=== PATIENT | female | born 1960 | race Caucasian/White ===

== ENCOUNTER 2017-08-13 08:30 | Outpatient (CLI) | payer OTHER ==
--- NOTE | 2017-08-13 15:21 | Nuclear Medicine Report ---
EXAM: PARATHYROID SCAN WITH SESTAMIBI, PLANAR AND SPECT IMAGING EXAM DATE: 08/13/2017 09:09 AM. CLINICAL HISTORY: Hyperparathyroidism. COMPARISON: None. TECHNIQUE: Following the intravenous administration of 23.7 mCi Tc-99m sestamibi, planar images of t he neck and upper chest were acquired immediately, and at one and two hours post injection. Additiona lly, a SPECT image was acquired according to the protocol; images were reconstructed in the axial, co lokesh, and sagittal projections. FINDINGS: The multiple planar sestamibi images demonstrate expected physiologic uptake in the salivar y glands and thyroid gland. There is asymmetric heterogeneous uptake in the right thyroid lobe with s omewhat nodular focus at the upper pole. On the delayed images there is persistent focal uptake at th e lower pole of the right thyroid gland with expected washout of the remainder of the thyroid gland. The SPECT sestamibi images demonstrate asymmetric focal uptake in the region of the lower pole of the right thyroid lobe. No evidence of ectopic parathyroid adenoma. No significant abnormalities in the remainder of the study. IMPRESSION: 1. Scintigraphic findings are consistent with a parathyroid adenoma at the lower pole of the right th yroid lobe. 2. Otherwise asymmetric thyroid gland uptake with somewhat nodular focus at the upper pole of the rig ht thyroid lobe. 3. Ultrasound correlation suggested. [facility] Referring Provider Line: [phone] SITE ID: [id number]
== END 2017-08-13 08:31 | disposition home or self-care (01) ==
LOC: DI 08:30
PROVIDERS: ATTEND Surgery
DX: E21.3 Hyperparathyroidism, unspecified (principal)
CPT/HCPCS: 78070; A9500

== ENCOUNTER 2017-09-25 05:58 | Day surgery (SDC) | payer OTHER ==
[2017-09-25 06:54] VITALS: BP 153/102
[2017-09-25] MEDS ORDERED: ceFAZolin 2 GM/50 ML 2 GM/50 ML BAG IV ONE (06:55)
[2017-09-25] MEDS ORDERED: LACTATED RINGERS 1,000 ML IV ONE ×2 (07:15→09:19)
[2017-09-25 08:16] LABS: ALBUMIN 3.3 g/dL (3.2-5.5); ALBUMIN/GLOBULIN RATIO 0.9 (1.0-2.2); BILIRUBIN,TOTAL 0.7 mg/dL (0.2-1.0); CALCIUM 9.7 mg/dL (8.5-10.3); CREATININE 0.8 mg/dL (0.4-1.0); TOTAL PROTEIN 6.9 g/dL (6.7-8.2)
[2017-09-25] MEDS ORDERED: SUCCINYLCHOLINE 200 MG/10 ML VIAL IVP ONE (10:11)
[2017-09-25] MEDS ORDERED: KETOROLAC 30 MG/ML VIAL IVP ONE (10:11)
[2017-09-25] MEDS ORDERED: fentaNYL 250 MCG/5 ML VIAL IVP ONE (10:11)
[2017-09-25] MEDS ORDERED: MIDAZOLAM 2 MG/2 ML VIAL IVP ONE (10:11)
[2017-09-25] MEDS ORDERED: PROPOFOL 200 MG/20 ML VIAL IVP ONE (10:11)
[2017-09-25] MEDS ORDERED: DEXAMETHASONE 4 MG/ML VIAL IVP ONE (10:11)
[2017-09-25] MEDS ORDERED: ONDANSETRON 4 MG/2 ML VIAL IVP ONE (10:11)
--- NOTE | 2017-09-25 10:19 | OPERATIVE REPORT ---
Operative Report - General Procedure Date: 09/25/17 Planned Procedure: RIGHT lower parathyroidectomy Pre-Op Diagnosis: Hyperparathyroidism (adenoma suspected) Procedure Performed: RIGHT lower parathyroidectomy Post Op Diagnosis: Hyperparathyroidism (adenoma confirmed - pathologically with weight=1.5 gm) - Procedure Note Primary Surgeon: Anam Zhou MD Anesthesia Provider: Ebony Leslie CRNA Anesthesia Technique: General ET tube Pathology: Frozen section confirmed RIGHT lower parathyroid adenoma weight =1.5 gm IV Fluids (mL): 1,200 Estimated Blood Loss (mL): 15 Urine Output (mL): 25 Drain/Tube Type: Jabari drain (10 Bulgarian) Complications: None. - Other Other Information/Narrative: OPERATIVE DESCRIPTION/REPORT: After verbal and written informed consent was obtained detailing the risks of infection, bleeding requiring transfusion with its risks, nerve injury, and , and after I met with the patient confirming the surgery and the site of the surgery, the patient was brought to the operative suite and placed supine on the operating table. Great care was taken to avoid pressure points to prevent pressure necrosis or nerve injury. Monitoring devices were applied along with TEDs and pneumatic compressive stockings (to prevent DVT). The patient received preoperative antibiotics for surgical prophylaxis. Ebony Leslie CRNA sedated and anethetized the patient for the entire procedure. The patient was prepped and draped in the usual sterile manner. With the patient draped my initials were clearly visible. A "time in" then confirmed that the paitient was identified with 3 identifiers (name, date and medical record number), the history and physical was in the chart, the signed consent confirming the procedure was in the chart, the patient was in the correct position, the aforementioned prophylactic measures were in place or given, we had the correct personnel and equipment to complete the procedure and that anesthesia, surgery and nursing were given an opportunity to express any concerns. With the agreement of everyone in the room, we proceeded with the operation. A standard curvilinear neck incision was made and dissection was carried down past the platysma muscle. Superior and inferior flaps of skin were then raised using gentle traction and Bovie electrocautery. The midline was incised with Bovie electrocautery in order to retract the strap muscles laterally without having to cut them. Dissection along the posterior aspect of the sternothyroid muscles and the anterior portion of the thyroid allowed the RIGHT anterior thyroid to be freed. The thyroid was normal except for a large thyroid cyst in the mid-upper pole. No lymphadenopathy was noted. The middle thyroidal vein was controlled proximally and distally and transected to aid in dissection and mobilization of the thyroid. After the inferior portion of the thyroid had been mobilized extent initial extensive dissection did not find the parathyroid adenoma and deeper evaluation finally found the parathyroid adenoma which is quite large between the carotid artery and the spine posterior to the trachea. The blood supply to this was doubly clipped with small hemoclips and the specimen was delivered from the operative field. This was sent to pathology for frozen section and evaluation. The pathologist called to confirm that this was an adenoma and confirmed the size. Once I obtain the phone call, hemostasis obtained using Bovie electrocautery but due to concerns I had for using a 10 Bulgarian Jabari drain was placed through a stab incision inferiorly and directed into the operative site. This was secured to the skin using a 3-0 nylon suture which was Rodrigo sandaled about the drain. The midline was re-approximated by sewing the fascia overlying the strap muscles with a running 3-0 Vicryl suture. The platysma was approximated using interrupted 3-0 Vicryl sutures. The skin was approximated using interrupted mattress 5-0 nylon sutures which will be removed tomorrow morning. At this point a time out was performed that confirmed that all the counts were correct, the procedure that was performed, the blood loss, the urine output, the IV fluids administered, and the patients condition. The skin sutures will be removed tomorrow morning. A dressing was then applied. All surgical counts were reported as correct. Having tolerated the procedure well, the patient was subsequently extubated and taken to recovery room in good and stable condition. The vocal cords were noted to be midline and moving at the end of the case with the patient phonating clearly and without difficulty.
[2017-09-25] MEDS ORDERED: HYDROmorphone 0.5 MG/0.5 ML SYRINGE IVP PRN ×2 (11:32→12:15)
[2017-09-25] MEDS ORDERED: ONDANSETRON 4 MG/2 ML VIAL IVP PRN ×2 (11:32→12:13)
[2017-09-25] MEDS: oxyCOD/ACETAMIN 5 MG/325 MG TABLET PO PRN ×3 (12:03→20:36)
[2017-09-25] MEDS ORDERED: CHOLECALCIFEROL 1,000 UNIT TABLET PO SCH (13:00)
[2017-09-25] MEDS: CALCIUM CARB (OYSTER SHELL) 500 MG TABLET PO SCH ×3 (15:19→20:35)
[2017-09-25] MEDS: CHOLECALCIFEROL 400 UNIT TABLET PO SCH ×3 (15:19→20:36)
[2017-09-25] MEDS ORDERED: SODIUM CHLORIDE FLUSH 0.9% 10 ML SYRINGE ONE ×2 (16:17→16:40)
[2017-09-26 01:02] LABS: CALCIUM 9.1 mg/dL (8.5-10.3); PHOSPHORUS 2.3 mg/dL (2.5-4.6)
[2017-09-26] MEDS ORDERED: SODIUM CHLORIDE FLUSH 0.9% 10 ML SYRINGE ONE (01:20)
[2017-09-26 06:20] LABS: PHOSPHORUS 2.9 mg/dL (2.5-4.6)
[2017-09-26] MEDS: CHOLECALCIFEROL 400 UNIT TABLET PO SCH (08:19)
[2017-09-26] MEDS: CALCIUM CARB (OYSTER SHELL) 500 MG TABLET PO SCH (08:19)
--- NOTE | 2017-09-26 08:57 | Discharge Plan ---
Discharge Plan Disposition: Home, Self Care Prescriptions: oxyCODONE/ACET 5/325 [Percocet 5 mg/325 mg] 1 tab PO Q4HR PRN #20 tablet PRN Reason: Pain Calcium Carbonate/Vitamin D3 [Calcium 500 mg-Vit D3 600 Unit] 1 each PO QID # 120 tablet Diet: Regular Activity Restrictions: No Restrictions Shower Restrictions: No Driving Restrictions: Yes (Until neck motion normal.) No Smoking: If you smoke, Please STOP! Call for help. Follow-up with: TALHA RIGGS [Primary Care Provider] - Anam Zhou MD [Provider Admit Priv/Credential] -
== END 2017-09-26 09:11 | disposition home or self-care (01) ==
LOC: SDS 05:58 → MS2 10:10 → SDS 09-26 09:11
PROVIDERS: ATTEND Surgery
PROC: 0GBN0ZZ Excision of Right Inferior Parathyroid Gland, Open Approach (ICD-10-PCS; principal; 2017-09-25 07:30)
DX: D35.1 Benign neoplasm of parathyroid gland (principal); E21.0 Primary hyperparathyroidism; I10 Essential (primary) hypertension
CPT/HCPCS: 36415; 60500; 80053; 82310; 84100; A9270; J0330; J0690; J1170; J3010; J7120

== ENCOUNTER 2017-09-27 12:27 | Outpatient (CLI) | payer OTHER ==
[2017-09-27 19:09] LABS: PHOSPHORUS 3.6 mg/dL (2.5-4.6)
== END 2017-09-27 12:28 | disposition home or self-care (01) ==
LOC: LAB.WCP 12:27
PROVIDERS: ATTEND Surgery
DX: E89.2 Postprocedural hypoparathyroidism (principal)
CPT/HCPCS: 36415; 81599; 82310; 84100

== ENCOUNTER 2020-06-10 10:07 | Outpatient (CLI) | payer OTHER ==
--- NOTE | 2020-06-11 10:49 | Mammography Report ---
BILATERAL DIGITAL SCREENING MAMMOGRAM 3D/2D: 06/10/2020 CLINICAL: Routine screening. Comparison is made to exams dated: 11/08/2015 mammogram and 11/04/2014 mammogram - [facility]. There are scattered fibroglandular elements in both breasts. No significant masses, calcifications, or other findings are seen in either breast. There has been no significant interval change. IMPRESSION: NEGATIVE There is no mammographic evidence of malignancy. A 1 year screening mammogram is recommended. This exam was interpreted at Station ID: [id number]. NOTE: For mammograms, a report in lay terms will be sent to the patient. Approximately 15% of breast malignancies will not be visualized mammographically. In the management of a palpable breast mass, a negative mammogram must not discourage biopsy of a clinically suspicious lesion. Electronically Signed By: Yann Mccormick M.D., jr/adrian:06/10/2020 12:42:55 ACR BI-RADS Category 1: Negative 3341F PARENCHYMAL PATTERN: (A) - The breast(s) demonstrate(s) scattered fibroglandular densities. BI-RADS CATEGORY: (1) - 1 RECOMMENDATION: (ANNUAL) - Recommend routine annual screening mammography. [id number] 1 year screening LATERALITY: (B)
== END 2020-06-10 10:08 | disposition home or self-care (01) ==
LOC: DI.N 10:07
DX: Z12.31 Encounter for screening mammogram for malignant neoplasm of breast (principal)

== ENCOUNTER 2021-12-27 10:24 | Emergency (ER) | payer OTHER ==
[2021-12-27 10:58] LABS: BASOPHILS # (AUTO) 0.1 10^3/uL (0.0-0.1); BASOPHILS % (AUTO) 0.8 %; EOSINOPHILS % (AUTO) 0.3 %; HCT - HEMATOCRIT 51.1 % (37.0-47.0); HGB - HEMOGLOBIN 16.5 g/dL (12.0-16.0); LYMPHOCYTES # (AUTO) 3.1 10^3/uL (1.5-3.5); MEAN CORPUSCULAR HEMOGLOBIN 28.2 pg (27.0-31.0); MEAN CORPUSCULAR HGB CONC 32.3 g/dL (32.0-36.0); MEAN CORPUSCULAR VOLUME 87.4 fL (81.0-99.0); MEAN PLATELET VOLUME 11.9 fL (7.9-10.8); MONOCYTES # (AUTO) 0.8 10^3/uL (0.0-1.0); MONOCYTES % (AUTO) 8.2 %; NEUTROPHILS # (AUTO) 6.2 10^3/uL (1.5-6.6); NEUTROPHILS % (AUTO) 60.4 %; PLT - PLATELET COUNT 255 10^3/uL (130-450); RED BLOOD COUNT 5.85 10^6/uL (4.20-5.40); RED CELL DISTRIBUTION WIDTH 13.8 % (12.0-15.0); WHITE BLOOD COUNT 10.3 x10^3/uL (4.8-10.8)
[2021-12-27 11:09] LABS: ALBUMIN 4.4 g/dL (3.2-5.5); BILIRUBIN,TOTAL 1.2 mg/dL (0.2-1.0); CALCIUM 10.2 mg/dL (8.5-10.3); CREATININE 1.4 mg/dL (0.4-1.0); TOTAL PROTEIN 8.7 g/dL (6.7-8.2)
[2021-12-27 11:28] LABS: CLARITY,URINE SL. CLOUDY (CLEAR); GLUCOSE, URINE (UA) NEGATIVE (NEGATIVE); KETONES,URINE (UA) 40 mg/dL (NEGATIVE); LEUKOCYTE ESTERASE, URINE TRACE (NEGATIVE); NITRITE,URINE NEGATIVE (NEGATIVE); OCCULT BLOOD,URINE NEGATIVE (NEGATIVE); PROTEIN,URINE 100 mg/dL (NEGATIVE); UROBILINOGEN,URINE 1 (NORMAL) E.U./dL (NORMAL)
[2021-12-27 11:33] LABS: BILIRUBIN,URINE NEGATIVE (NEGATIVE); ICTOTEST,URINE NEGATIVE
[2021-12-27 11:37] LABS: BACTERIA,URINE Moderate /HPF (None Seen); CASTS, URINE 0-2 Hyaline Casts /LPF; CRYSTALS,URINE 3-5 Calcium Oxalate /LPF; RBC,URINE 0-5 /HPF (0-5); SQUAMOUS EPITHELIAL CELL,UR FEW Squamous (<= Few)
--- NOTE | 2021-12-27 14:36 | ED Physician Documentation ---
PD HPI ABD PAIN - Stated complaint Stated Complaint: ABD PAIN - Chief complaint Chief Complaint: Abd Pain - History obtained from History obtained from: Patient - History of Present Illness Timing - onset: How many weeks ago (several) Timing - duration: Weeks Timing - details: Gradual onset, Still present, Waxing and waning Quality: Cramping, Aching, Pain Location: RUQ, Epigastric, Periumbilical Improved by: No: Eating, BM Worsened by: Eating Associated symptoms: Nausea, Diarrhea (soft stool at times.), Loss of appetite. No: Fever, Vomiting, Melena, Hematochezia, Dysuria Similar symptoms before: Has not had sx before Recently seen: Not recently seen Review of Systems Constitutional: denies: Fever, Chills Nose: denies: Rhinorrhea / runny nose, Congestion Throat: denies: Sore throat Respiratory: denies: Cough GI: reports: Abdominal Pain, Nausea, Diarrhea. denies: Vomiting, Constipation : denies: Dysuria, Frequency Neurologic: reports: Generalized weakness. 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 HEENT: Other - Present Medications Home Medications: Ambulatory Orders Medication Instructions Recorded Confirmed Cholecalciferol [Vitamin D3] 5,000 unit PO DAILY 09/24/17 09/24/17 Multivitamin [Multiple Vitamins] 1 each PO DAILY 09/24/17 09/24/17 Calcium Carbonate/Vitamin D3 1 each PO QID #120 tablet 09/26/17 [Calcium 500 mg-Vit D3 600 Unit] oxyCODONE/ACET 5/325 [Percocet 5 1 tab PO Q4HR PRN #20 tablet 09/26/17 mg/325 mg] Famotidine [Pepcid] 20 mg PO DAILY #20 tablet 12/27/21 HYDROcod/ACETAM 5/325 [[place] 5/325] 1 ea PO Q6H PRN #18 tablet 12/27/21 Ondansetron Odt [Zofran] 4 mg TL Q6H PRN #20 tablet 12/27/21 - Allergies Allergies/Adverse Reactions: Allergies Allergy/AdvReac Type Severity Reaction Status Date / Time No Known Drug Allergies Allergy Verified 09/24/17 12:33 PD ED PE NORMAL - Vitals Vital signs reviewed: Yes - General General: Alert and oriented X 3, Well developed/nourished - HEENT HEENT: Pharynx benign - Neck Neck: Supple, no meningeal sign, No adenopathy - Cardiac Cardiac: RRR, No murmur - Respiratory Respiratory: Clear bilaterally - Abdomen Abdomen: Soft, Non distended, No organomegaly, Other (decreased bowel sounds. Tender upper abd mid to right and also mid abd. Mild guarding. no rebound nor percussion tenderness. ) - Back Back: No CVA TTP - Derm Derm: Normal color, Warm and dry - Neuro Neuro: Alert and oriented X 3, No motor deficit, Normal speech Results - Vitals Vitals: Oxygen O2 Source Room air - Labs Labs: Microbiology 12/27/21 10:45 Urine Culture - Final Urine,Random 10-50,000 COLONIES/ML Polymicrobial growth including potential pathogens. This is suggestive of skin or other contamination. Laboratory Tests 12/27/21 12/27/21 12/27/21 10:37 10:45 10:50 WBC 10.3 RBC 5.85 H Hgb 16.5 H Hct 51.1 H MCV 87.4 MCH 28.2 MCHC 32.3 RDW 13.8 Plt Count 255 MPV 11.9 H Neut # (Auto) 6.2 Lymph # (Auto) 3.1 [place] # (Auto) 0.8 Eos # (Auto) 0.0 Baso # (Auto) 0.1 Absolute Nucleated RBC 0.00 Nucleated RBC % 0.0 ESR 31 H Sodium Potassium Chloride Carbon Dioxide Anion Gap BUN Creatinine Estimated GFR (MDRD) Glucose Calcium Total Bilirubin AST ALT Alkaline Phosphatase Total Protein Albumin Globulin Albumin/Globulin Ratio Lipase Urine Color DARK YELLOW Urine Clarity SL. CLOUDY Urine pH 6.0 Ur Specific [place] >=1.030 H Urine Protein 100 H Urine Glucose (UA) NEGATIVE Urine Ketones 40 H Urine Occult Blood NEGATIVE Urine Nitrite NEGATIVE Urine Bilirubin NEGATIVE Urine Urobilinogen 1 (NORMAL) Ur Leukocyte Esterase TRACE H Urine RBC 0-5 Urine WBC 11-25 H Ur Squamous Epith Cells FEW Squamous Urine Crystals 3-5 Calcium Oxalate Urine Bacteria Moderate H Urine Casts 0-2 Hyaline Casts Ur Microscopic Review INDICATED Urine Culture Comments INDICATED 12/27/21 10:50 WBC RBC Hgb Hct MCV MCH MCHC RDW Plt Count MPV Neut # (Auto) Lymph # (Auto) [place] # (Auto) Eos # (Auto) Baso # (Auto) Absolute Nucleated RBC Nucleated RBC % ESR Sodium 135 Potassium 4.0 Chloride 102 Carbon Dioxide 18 L Anion Gap 15.0 H BUN 29 H Creatinine 1.4 H Estimated GFR (MDRD) 38 L Glucose 114 H Calcium 10.2 Total Bilirubin 1.2 H AST 26 ALT 31 Alkaline Phosphatase 103 Total Protein 8.7 H Albumin 4.4 Globulin 4.3 H Albumin/Globulin Ratio 1.0 Lipase 26 Urine Color Urine Clarity Urine pH Ur Specific [place] Urine Protein Urine Glucose (UA) Urine Ketones Urine Occult Blood Urine Nitrite Urine Bilirubin Urine Urobilinogen Ur Leukocyte Esterase Urine RBC Urine WBC Ur Squamous Epith Cells Urine Crystals Urine Bacteria Urine Casts Ur Microscopic Review Urine Culture Comments - Rads (name of study) abd/pelvic CT Radiology: Prelim report reviewed (cholelithiasis. No edema. renal stones. No acute process. US recommended if clinical suspicion. ), See rad report RUQ Abd US Radiology: Prelim report reviewed (gall stone in neck. 4 mm tickened GB wall. No surrounding fluid. CBD normal. ), See rad report PD MEDICAL DECISION MAKING - ED course Complexity details: reviewed results (has pain general abd but more upper/right location, worse with eating. CT/US showing gallstone in neck and thickened wall suggesting GB as cause of pain. 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 wall thickening indicative of ongoing irritation. Does not sound acute cholecystitis without fluid, edema, elevated WBc, etc. ) Departure - Departure Disposition: 01 Home, Self Care Clinical Impression: Upper abdominal pain, Biliary colic Condition: Stable Record reviewed to determine appropriate education?: Yes Instructions: ED Gallstone W Biliary Colic Follow-Up: MIRIAM GUTHRIE ARNP [Primary Care Provider] - Usman Figueroa MD [Provider Admit Priv/Credential] - Prescriptions: HYDROcod/ACETAM 5/325 [[place] 5/325] 1 ea PO Q6H PRN #18 tablet PRN Reason: Pain Famotidine [Pepcid] 20 mg PO DAILY #20 tablet Ondansetron Odt [Zofran] 4 mg TL Q6H PRN #20 tablet PRN Reason: Nausea / Vomiting Comments: Your CT scan did show some gallstones but no obvious acute inflammation of the gallbladder. Ultrasound has been done to better evaluate. No other acute processes seen on the CT scan. You have some incidental stones in your kidneys but they are not in a position to cause pain. Considerations can be pain from the gallstones causing spasm. Other consideration would be irritation of the intestines and may warrant further investigation with colonoscopy or other testing. I would have you take some ondansetron if needed for nausea. Use Tylenol 4 times daily to help with pain and add hydrocodone if needed for worse pain at times. Also consider possibility of some acid production causing some of the upper pain and so add famotidine daily for the next 2 to 3 weeks. Follow-up with your primary care tomorrow as scheduled. Also consider following up with general surgery regarding discussion or further evaluation of the gallbladder. I sent your prescriptions to your preferred [facility] pharmacy. I am prescribing a short course of narcotic pain medication for you. These are potentially dangerous and addictive medications that should be used carefully. These medications may constipate you. Take an [id number]-[id number] stool softener such as docusate twice daily with plenty of water while taking these medications. If you go 24 hours without a bowel movement, take [id number]-[id number] MiraLAX, per package instructions. Do not drink or drive while taking these medications. If you received narcotic or sedating medications while in the emergency department do not drive for 24 hours. Store this medication in a safe, secure place and out of reach of children. It is a violation of federal law to give or sell this medication to another person or to use in a manner other than prescribed. The ED will not refill narcotic prescriptions, including prescriptions lost or stolen. You can dispose of unwanted medications at the [facility]'s office or at several pharmacies such as [facility]. Discharge Date/Time: 12/27/21 19:38
[2021-12-27] MEDS ORDERED: ONDANSETRON 4 MG/2 ML VIAL IVP STA (15:12)
[2021-12-27] MEDS ORDERED: SODIUM CHLORIDE 0.9% 1,000 ML IV STA (15:12)
[2021-12-27] MEDS ORDERED: HYDROmorphone 0.5 MG/0.5 ML SYRINGE IVP STA (15:12)
[2021-12-27] MEDS ORDERED: iohexoL-300 100 ML VIAL ONE (16:08)
--- NOTE | 2021-12-27 16:56 | CT Report ---
PROCEDURE: ABDOMEN/PELVIS W INDICATIONS: mid/general abd pain for 3 weeks. CONTRAST: 100ml Omnipaque 300 TECHNIQUE: After the administration of intravenous contrast, 5 mm thick sections acquired from the diaphragms to the symphysis. 5 mm thick coronal and sagittal reformats were acquired. For radiation dose reducti on, the following was used: automated exposure control, adjustment of mA and/or kV according to good ent size. COMPARISON: None. FINDINGS: Image quality: Excellent. ABDOMEN: Lung bases: Lung bases are clear. Heart size is normal. Solid organs: Liver and spleen are normal in size and enhancement. Gallbladder contains a large, pa rtially calcified gallstone. Biliary system is non dilated. Pancreas enhances normally. No adrenal nodules. Left kidney is normal in size and enhancement. Right kidney is atrophied with diminished en hancement concerning for chronic uropathy. 1.6 cm in maximum diameter and 1.1 cm maximum diameter non obstructing stones identified in the lower pole of the right kidney. Ureters follow normal course of normal caliber. Peritoneum and bowel: Bowel loops demonstrate normal wall thickness and caliber. No free fluid or a ir. Normal appendix. Nodes and vessels: No retroperitoneal or mesenteric adenopathy by size criteria. Aorta and inferior vena cava are normal in size. Scattered atherosclerotic calcifications are noted in the abdominal an d pelvic vasculature. Miscellaneous: Small fat-containing umbilical hernia. PELVIS: Genitourinary: Bladder wall thickness is normal. Miscellaneous: No inguinal hernias or adenopathy. Bones: No suspicious bony lesions. No vertebral body compression fractures. Spine degenerative disc disease and facet arthropathy are noted. IMPRESSION: No acute disease process. Cholelithiasis. If there is clinical concern for biliary disease consider abdominal ultrasound for ad ditional evaluation. Right renal atrophy and decreased enhancement concerning for chronic uropathy. Large nonobstructing right renal stones. Appendix is normal. Reviewed by: Nabila Roper MD, PhD on 12/27/2021 4:55 PM PDT Approved by: Nabila Roper MD, PhD on 12/27/2021 4:55 PM PDT Station ID: [id number]
[2021-12-27] MEDS ORDERED: ONDANSETRON ODT 4 MG Prepack 2 TL PRN (18:56)
[2021-12-27] MEDS ORDERED: HYDROcod/ACET 5/325 Prepack 4 PO STA (18:56)
[2021-12-27 19:34] VITALS: BP 130/78
--- NOTE | 2021-12-27 19:50 | Ultrasound Report ---
PROCEDURE: Abdomen Limited INDICATIONS: gallstones; Abd pain; U/S recommended by Rad TECHNIQUE: Real-time scanning was performed of the abdominal and retroperitoneal organs, with image documentatio n. COMPARISON: CT abdomen pelvis earlier today.. FINDINGS: Liver: Liver is normal in size. Increased in echogenicity. Gallbladder: Gallbladder is nondistended. Stone at the gallbladder neck measuring 2.1 cm. Gallbladder wall measures 4.4 mm and is mildly thickened. No pericholecystic fluid. Negative sonographic [place] sign. Biliary ducts: Extrahepatic bile duct caliber measures 6 mm. Normal is 6-7 mm or less in diameter, or 10 mm or less post-cholecystectomy. Pancreas: Not well seen. Right kidney: Measures 7.5 cm. Cortex 1.3 cm. Atrophic. No shadowing stone seen on CT are not well se en. IMPRESSION: 1. Stone at the gallbladder neck with gallbladder wall thickening. These findings raise the possibili ty of acute cholecystitis. -Recommend clinical correlation. HIDA scan may be helpful for further evaluation. 2. Increased echogenicity of the hepatic parenchyma. This is most commonly seen in hepatic steatosis. Other forms of hepatocellular disease could have a similar appearance. 3. Atrophic right kidney. Reviewed by: Marcus Maguire MD on 12/27/2021 7:49 PM PDT Approved by: Marcus Maguire MD on 12/27/2021 7:49 PM PDT Station ID: [id number]
[2021-12-27] MEDS ORDERED: iohexoL-300 100 ML VIAL IVP ONE (23:58)
== END 2021-12-27 19:38 | disposition home or self-care (01) ==
LOC: ED 10:24
DX: K80.50 Calculus of bile duct without cholangitis or cholecystitis without obstruction (principal); I10 Essential (primary) hypertension
CPT/HCPCS: 36415; 74177; 76705; 80053; 81001; 83690; 85025; 85651; 87086; 96374; 96375; 99284; J1170; Q9967; 81003

== ENCOUNTER 2022-02-07 06:17 | Day surgery (SDC) | payer OTHER ==
[2022-02-07] MEDS ORDERED: BUPIVACAINE 0.25% PF 10 ML VIAL ONE (06:58)
[2022-02-07] MEDS ORDERED: MIDAZOLAM 2 MG/2 ML VIAL ONE (07:05)
[2022-02-07] MEDS ORDERED: fentaNYL 100 MCG/2 ML VIAL ONE ×3 (07:05→09:21)
[2022-02-07] MEDS ORDERED: LACTATED RINGERS 1,000 ML IV ONE (07:06)
[2022-02-07] MEDS ORDERED: ROCURONIUM 50 MG/5 ML VIAL ONE (07:06)
[2022-02-07] MEDS ORDERED: PROPOFOL 200 MG/20 ML VIAL IVP ONE (07:06)
[2022-02-07] MEDS ORDERED: LIDOCAINE-PF 2% 10 ML AMP SUBQ ONE (07:07)
[2022-02-07] MEDS ORDERED: CEFAZOLIN 2G/50ML 0.9% NS 2 GM/50 ML BAG IV ONE (07:16)
[2022-02-07] MEDS ORDERED: HYDROmorphone 0.5 MG/0.5 ML SYRINGE IVP PRN ×2 (07:19→09:07)
[2022-02-07] MEDS ORDERED: ePHEDrine 50 MG/ML VIAL IVP PRN (07:19)
[2022-02-07] MEDS ORDERED: ONDANSETRON 4 MG/2 ML VIAL IVP PRN ×2 (07:19→09:07)
[2022-02-07] MEDS ORDERED: METOCLOPRAMIDE 10 MG/2 ML VIAL IVP PRN (07:19)
[2022-02-07] MEDS ORDERED: NALOXONE 0.4 MG/ML VIAL IVP PRN (07:19)
[2022-02-07] MEDS ORDERED: MORPHINE 2 MG/ML CARPUJECT IVP PRN (07:19)
[2022-02-07] MEDS ORDERED: ATROPINE ABBOJECT 1 MG/10 ML SYRINGE IVP PRN (07:19)
--- NOTE | 2022-02-07 07:19 | ANESTHESIA ---
Pre-Anesthesia VS, & Labs - Diagnosis cholecystitis - Procedure lap cecilia Vital Signs: Temp Pulse Resp BP Pulse Ox O2 Flow Rate 36.2 C L 78 15 151/77 H 100 02/07/22 06:35 02/07/22 06:35 02/07/22 06:35 02/07/22 06:35 02/07/22 06:35 Height: 5 ft 5 in Weight (kg): 108.8 kg Body Mass Index: 39.9 BMI Classification: Obese - NPO >8 hours - Is Patient ?: No - Lab Results Lab results reviewed: Yes Home Medications and Allergies Home Medications: Ambulatory Orders Ascorbic Acid [Vitamin C] 500 mg PO DAILY 01/19/22 Lisinopril [Zestril] 20 mg PO DAILY 01/19/22 Multivitamin [Multiple Vitamins] 1 each PO DAILY 09/24/17 Ascorbic Acid [Vitamin C] 500 mg PO DAILY 01/19/22 Lisinopril [Zestril] 20 mg PO DAILY 01/19/22 Allergies/Adverse Reactions: Allergies Allergy/AdvReac Type Severity Reaction Status Date / Time No Known Drug Allergies Allergy Verified 09/24/17 12:33 Anes History & Medical History - Anesthetic History Anesthesia Complications: reports: No previous complications Family history of Anesthesia Complications: Denies Family history of Malignant Hyperthermia: Denies - Medical History Cardiovascular: reports: Hypertension Pulmonary: reports: None Gastrointestinal: reports: None Urinary: reports: Kidney stones Musculoskeletal: reports: None Endocrine/Autoimmune: reports: None Skin: reports: Other Smoking Status: Never smoker - Surgical History General: reports: Colonoscopy Eyes Ears Nose Throat (EENT): Gynecologic: reports: Dilation and currettage, Tubal ligation Orthopedic: reports: Other Exam General: Alert, Oriented x3, Cooperative Dental: WNL Mouth Openin Fingerbreadth Neck Mobility: Normal Mallampati classification: II Thyromental Distance: 4-6 cm Respiratory: Lungs clear, Normal breath sounds, No respiratory distress, No accessory muscle use Cardiovascular: Regular rate Neurological: Normal speech Mental/Cognitive Status: Alert/Oriented X3, Normal for patient Cognitive Status: Within normal limits Plan Anesthesia Type: General Consent for Procedure(s) Verified and Reviewed: Yes Code Status: Attempt Resuscitation ASA classification: 2-Mild systemic disease Is this case an emergency?: No
[2022-02-07] MEDS ORDERED: ONDANSETRON 4 MG/2 ML VIAL ONE ×2 (07:46→09:22)
[2022-02-07] MEDS ORDERED: DEXAMETHASONE 4 MG/ML VIAL ONE (07:46)
[2022-02-07] MEDS ORDERED: PHENYLEPHRINE 10 MG/ML VIAL ONE (07:56)
[2022-02-07] MEDS ORDERED: LACTATED RINGERS 1,000 ML IV SCH (08:00)
[2022-02-07] MEDS ORDERED: BUPIVACAINE 0.25% PF 10 ML VIAL SUBQ ONE (08:03)
[2022-02-07] MEDS ORDERED: SUGAMMADEX 200 MG/2 ML VIAL IVP ONE (08:26)
[2022-02-07] MEDS ORDERED: KETOROLAC 30 MG/ML VIAL ONE (08:33)
[2022-02-07] MEDS ORDERED: LACTATED RINGERS 750 ML IV ONE (09:05)
[2022-02-07] MEDS ORDERED: HYDROcod/ACETAM 5/325 MG TABLET PO PRN (09:07)
--- NOTE | 2022-02-07 09:16 | OPERATIVE REPORT ---
Operative Report - General Procedure Date: 02/07/22 Planned Procedure: lap cecilia Pre-Op Diagnosis: chronic cholecystitis Procedure Performed: lap cecilia Post Op Diagnosis: chronic cholecystitis - Procedure Note Primary Surgeon: delia panda Anesthesia Technique: General ET tube, Local Pathology: gallbladder Estimated Blood Loss (mL): 3 Drain/Tube Type: Other (none) Indications: gallbladder pain Findings: hydrops Complications: none - Other Other Information/Narrative: The patient was properly identified brought to the operating room and placed in supine position. Sequential compression devices were placed. General endotracheal anesthesia was induced. She was prepped and draped and given preoperative antibiotics she had mild weakness at the umbilicus. Incision was made approximately 6 cm cephalad and 4 cm right lateral of the umbilicus. Dissection proceeded down to the fascia fascia was lifted upwards and abdomen entered with a Veress needle. CO2 was insufflated to a pressure of 15. An 11 mm trocar was placed. There was no evidence of injury from Veress needle or trocar placement. Patient had a very tense very distended gallbladder. Under direct vision 2 5 mm trochars were placed in the right upper quadrant and an 11 mm trocar was placed in the epigastrium. Gallbladder was retracted cephalad. Omental adhesions were taken down. Lateral attachments were partially taken down further mobilizing the gallbladder. There was scant spillage of clear fluid from the gallbladder. The infundibulum of the gallbladder was retracted right lateral and caudad. The cystic duct and cystic artery were clearly identified. Large bare cystic plate area was carefully developed with minimal use of cautery. The cystic duct and cystic artery were both clipped at the gallbladder and 2 times more slightly proximal and sharply divided. Gallbladder was mobilized off from the liver and placed in an Endo Catch bag. The abdomen was irrigated. Hemostasis was assured. There were no apparent complications. Gallbladder was removed through an enlarged epigastric trocar site. Fascia was closed with a running 0 Vicryl suture. Fascia at the periumbilical site was closed with a [id number] 0 Vicryl suture. Skin and subcutaneous tissue was irrigated and then closed with buried interrupted 4-0 Monocryl. Dressings were applied. Tolerated the procedure well was awakened and brought to recovery in good condition.
[2022-02-07] MEDS: fentaNYL 100 MCG/2 ML VIAL IVP PRN ×3 (09:20→10:03)
[2022-02-07] MEDS ORDERED: HYDROmorphone 1 MG/ML CARPUJECT ONE (09:26)
[2022-02-07 10:43] VITALS: BP 142/98
[2022-02-07] MEDS ORDERED: HYDROcod/ACETAM 5/325 MG TABLET ONE (10:47)
--- NOTE | 2022-02-07 11:04 | ANESTHESIA POST OP EVALUATION ---
Anesthesia Post Eval - Post Anesthesia Eval Vitals: Last Vital Signs Temp 36.3 C L 02/07/22 10:40 Pulse 64 02/07/22 10:40 Resp 16 02/07/22 10:40 BP 142/98 H 02/07/22 10:40 Pulse Ox 100 02/07/22 10:40 O2 Flow Rate CV Function Including HR & BP: Stable Pain Control: Satisfactory Nausea & Vomiting: Negative Mental Status: Baseline Respiratory Status: Airway Patent Hydration Status: Satisfactory Anesthesia Complications: None
== END 2022-02-07 06:18 | disposition home or self-care (01) ==
LOC: SDS 06:17
PROVIDERS: ATTEND Surgery
PROC: 0FT44ZZ Resection of Gallbladder, Percutaneous Endoscopic Approach (ICD-10-PCS; principal; 2022-02-07 07:30)
DX: K80.12 Calculus of gallbladder with acute and chronic cholecystitis without obstruction (principal); I10 Essential (primary) hypertension; E66.9 Obesity, unspecified; Z68.41 Body mass index [BMI] 40.0-44.9, adult; Z79.899 Other long term (current) drug therapy
CPT/HCPCS: 47562; A9270; J0690; J1170; J7120